=== PATIENT | female | born 1945 ===

== ENCOUNTER 2023-02-19 12:58 | Inpatient (IN) | payer MEDICARE, OTHER ==
[~2023-02-19] VITALS: Ht 149.9 cm; Wt 92.8 kg
[2023-02-19] MEDS ORDERED: ATOR20TA PO (13:07)
[2023-02-19] MEDS ORDERED: CALC-1038 PO (13:07)
[2023-02-19] MEDS ORDERED: AMLO-257 PO (13:07)
[2023-02-19] MEDS ORDERED: CHOL25TA4 PO (13:07)
[2023-02-19] MEDS ORDERED: METO-558 PO (13:07)
[2023-02-19] MEDS ORDERED: METF-1211 PO (13:07)
[2023-02-19] MEDS ORDERED: RIVA20TA PO (13:07)
[2023-02-19] MEDS ORDERED: DORZ1DRO12 OU (13:07)
[2023-02-19] MEDS ORDERED: LOSA-382 PO (13:07)
[2023-02-19] MEDS ORDERED: FURO40TA5 PO (13:26)
[2023-02-19] MEDS ORDERED: DILTIAZEM HCL 5 MG/ML 5 ML VIAL IVP ONE (13:30)
[2023-02-19 13:41] LABS: BASOPHILS % (AUTO) 0.5 % (0.0-2.0); EOSINOPHILS % (AUTO) 1.3 % (1.0-6.0); HEMATOCRIT 35.7 % (36-46); HEMOGLOBIN 11.3 g/dL (12.0-16.0); LYMPHOCYTES # (AUTO) 1.3 K/uL (1.0-4.8); LYMPHOCYTES % (AUTO) 18.1 % (22.0-44.0); MEAN CORPUSCULAR HEMOGLOBIN 25.6 pg (26.0-34.0); MEAN CORPUSCULAR HGB CONC 31.8 G/dL (31.0-37.0); MEAN CORPUSCULAR VOLUME 80 fL (80-100); MONOCYTES # (AUTO) 0.6 K/uL (0.1-1.0); MONOCYTES % (AUTO) 7.9 % (2.0-9.0); NEUTROPHILS # (AUTO) 5.3 K/uL (1.8-7.7); NEUTROPHILS % (AUTO) 72.2 % (40.0-70.0); PLATELET COUNT (AUTO) 390 K/uL (150-450); RED BLOOD CELL COUNT(AUTO) 4.43 MIL/uL (4.00-5.20); RED CELL DISTRIBUTION WIDTH 16.7 % (11.5-14.5)
[2023-02-19 13:53] LABS: INR 1.7 (0.9-1.1); PROTHROMBIN TIME 17.3 SEC (9.4-11.6)
[2023-02-19] MEDS ORDERED: FUROSEMIDE 40 MG/4 ML VIAL IVP ONE (14:00)
[2023-02-19] MEDS ORDERED: NITROGLYCERIN 2% (1 GM=INCH) OINTMENT PACKET TP ONE (14:00)
[2023-02-19] MEDS ORDERED: AMIODARONE HCL 150 MG in DEXTROSE 5%-WATER 97 ML IV ONE (14:30)
[2023-02-19] MEDS ORDERED: AMIODARONE HCL 360 MG in DEXTROSE 5%-WATER 242.8 ML IV ONE (14:30)
[2023-02-19 14:44] LABS: CREATININE 1.27 mg/dL (0.60-1.30)
[2023-02-19 14:50] LABS: ALBUMIN 3.4 g/dL (3.4-5.0); TOTAL PROTEIN, SERUM 7.6 g/dL (6.4-8.2)
[2023-02-19 18:32] LABS: APPEARANCE,URINE CLEAR (CLEAR); BILIRUBIN,URINE NEGATIVE (NEGATIVE); GLUCOSE, URINE (UA) NEGATIVE (NEGATIVE); KETONES,URINE NEGATIVE (NEGATIVE); LEUKOCYTE ESTERASE ,URINE SMALL (NEGATIVE); NITRATE,URINE NEGATIVE (NEGATIVE); OCCULT BLOOD,URINE NEGATIVE (NEGATIVE); PH,URINE 6.5 (5.0-8.0); PROTEIN,URINE NEGATIVE (NEGATIVE); SPECIFIC GRAVITIY, URINE 1.005 (1.003-1.030); UROBILINOGEN,URINE <=1.0 mg/dL (<=1.0)
[2023-02-19 18:44] LABS: BACTERIA,URINE None Seen /HPF (None Seen); RBC,URINE 0-2 /HPF (0-2); SQUAMOUS EPITHELIAL CELL,UR Few /LPF (None Seen); WBC,URINE 0-2 /HPF (0-5)
[2023-02-19] MEDS ORDERED: ONDANSETRON HCL 4 MG/2 ML VIAL IVP PRN (20:00)
[2023-02-19] MEDS ORDERED: ALBUTEROL SULFATE 2.5 MG/0.5 ML NEB SOLUTION NEB PRN (20:00)
[2023-02-19] MEDS: RIVAROXABAN 20 MG TABLET PO SCH (20:00)
[2023-02-19] MEDS ORDERED: ZOLPIDEM TARTRATE 5 MG TABLET PO PRN (20:00)
[2023-02-19] MEDS ORDERED: HYDROCODONE/ACETAMINOPHEN 5-325 MG TABLET PO PRN (20:00)
[2023-02-19] MEDS ORDERED: ACETAMINOPHEN 325 MG TABLET PO PRN (20:00)
[2023-02-19] MEDS ORDERED: MAGNESIUM HYDROXIDE SUSPENSION 30 ML UDCUP PO PRN (20:00)
[2023-02-19] MEDS ORDERED: MORPHINE SULFATE 2 MG/ML SYRINGE IVP PRN (20:00)
[2023-02-19] MEDS ORDERED: IPRATROPIUM BROMIDE 0.5 MG/2.5 ML NEB SOLUTION NEB PRN (20:00)
[2023-02-19] MEDS ORDERED: BISACODYL 10 MG RECTAL RECTAL SUPPOSITORY PR PRN (20:00)
[2023-02-19] MEDS ORDERED: DEXTROSE 50%-WATER 25 GM/50 ML SYRINGE IVP PRN (20:15)
[2023-02-19] MEDS ORDERED: AMIODARONE HCL 540 MG in DEXTROSE 5%-WATER 239.2 ML IV ONE (21:00)
[2023-02-19 21:13] VITALS: BP 135/74; PULSE 133; RESP 21; TEMP 98.6
[2023-02-19] MEDS: CALCIUM [CALCIUM CARB 1250MG] 500 MG TABLET PO SCH (21:31)
[2023-02-19] MEDS: DORZOLAMIDE/TIMOLOL 2-0.5% [22.3-6.8MG/ML] 10 ML OPHTHALMIC SOLUTION OU SCH (21:32)
[2023-02-19] MEDS: ATORVASTATIN CALCIUM 20 MG TABLET PO SCH (21:46)
[2023-02-19] MEDS: FUROSEMIDE 40 MG/4 ML VIAL IVP SCH (21:46)
[2023-02-19 22:06] LABS: GLUCOMETER DEV NAME(LOC) 5S.1B
[2023-02-20] VITALS (7 sets, daily range): BP systolic 106–137; BP diastolic 66–92; PULSE 123–131; RESP 18–20; TEMP 98–98.5
[2023-02-20 06:25] LABS: GLUCOMETER DEV NAME(LOC) 5S.1B
[2023-02-20] MEDS: DORZOLAMIDE/TIMOLOL 2-0.5% [22.3-6.8MG/ML] 10 ML OPHTHALMIC SOLUTION OU SCH ×2 (08:42→20:34)
[2023-02-20] MEDS: FUROSEMIDE 40 MG/4 ML VIAL IVP SCH ×2 (08:42→20:33)
[2023-02-20] MEDS: CHOLECALCIFEROL (VIT D3) 1,000 UNITS [25 MCG] TABLET PO SCH (08:42)
[2023-02-20] MEDS: FAMOTIDINE 20 MG TABLET PO SCH (08:42)
[2023-02-20] MEDS: CALCIUM [CALCIUM CARB 1250MG] 500 MG TABLET PO SCH ×2 (08:52→20:34)
[2023-02-20] MEDS: METOPROLOL SUCCINATE 50 MG ER TABLET PO SCH (16:22)
[2023-02-20] MEDS: AMIODARONE HCL 750 MG in DEXTROSE 5%-WATER 485 ML IV SCH (16:22)
[2023-02-20] MEDS: RIVAROXABAN 20 MG TABLET PO SCH (17:21)
[2023-02-20] MEDS: ATORVASTATIN CALCIUM 20 MG TABLET PO SCH (20:34)
[2023-02-20] MEDS: INSULIN LISPRO 100 UNITS/ML SQ PRN (20:42)
[2023-02-20 21:01] LABS: GLUCOMETER DEV NAME(LOC) 5S.1B
[2023-02-21 01:01] LABS: GLUCOMETER DEV NAME(LOC) 5N.2C
[2023-02-21 01:01] LABS: GLUCOMETER DEV NAME(LOC) 5N.2C
[2023-02-21 04:24] VITALS: BP 114/71; PULSE 131; RESP 20; TEMP 98.4
[2023-02-21] MEDS: INSULIN LISPRO 100 UNITS/ML SQ PRN ×2 (05:58→21:16)
[2023-02-21 06:05] LABS: GLUCOMETER DEV NAME(LOC) 5S.1B
[2023-02-21 07:25] VITALS: BP 114/92; PULSE 124; RESP 18; TEMP 98
[2023-02-21] MEDS: DIGOXIN 250 MCG/ML 2 ML AMP IVP SCH ×3 (09:21→21:11)
[2023-02-21] MEDS: METOPROLOL SUCCINATE 50 MG ER TABLET PO SCH (09:22)
[2023-02-21] MEDS: CHOLECALCIFEROL (VIT D3) 1,000 UNITS [25 MCG] TABLET PO SCH (09:22)
[2023-02-21] MEDS: DORZOLAMIDE/TIMOLOL 2-0.5% [22.3-6.8MG/ML] 10 ML OPHTHALMIC SOLUTION OU SCH ×2 (09:22→20:19)
[2023-02-21] MEDS: CALCIUM [CALCIUM CARB 1250MG] 500 MG TABLET PO SCH ×2 (09:22→20:19)
[2023-02-21] MEDS: FAMOTIDINE 20 MG TABLET PO SCH (09:23)
[2023-02-21] MEDS: FUROSEMIDE 40 MG/4 ML VIAL IVP SCH ×2 (09:23→20:21)
[2023-02-21 12:11] VITALS: BP 124/72; PULSE 100; RESP 16; TEMP 97.9
[2023-02-21 14:16] LABS: BASOPHILS % (AUTO) 0.9 % (0.0-2.0); EOSINOPHILS % (AUTO) 2.1 % (1.0-6.0); HEMATOCRIT 37.3 % (36-46); HEMOGLOBIN 11.8 g/dL (12.0-16.0); LYMPHOCYTES # (AUTO) 1.4 K/uL (1.0-4.8); MEAN CORPUSCULAR HEMOGLOBIN 25.3 pg (26.0-34.0); MEAN CORPUSCULAR HGB CONC 31.6 G/dL (31.0-37.0); MEAN CORPUSCULAR VOLUME 80 fL (80-100); MONOCYTES # (AUTO) 0.7 K/uL (0.1-1.0); MONOCYTES % (AUTO) 8.2 % (2.0-9.0); NEUTROPHILS # (AUTO) 5.8 K/uL (1.8-7.7); NEUTROPHILS % (AUTO) 71.8 % (40.0-70.0); PLATELET COUNT (AUTO) 355 K/uL (150-450); RED BLOOD CELL COUNT(AUTO) 4.65 MIL/uL (4.00-5.20); RED CELL DISTRIBUTION WIDTH 16.1 % (11.5-14.5)
[2023-02-21 14:27] LABS: CALCIUM, TOTAL 9.1 mg/dL (8.8-10.5); CREATININE 1.27 mg/dL (0.60-1.30); POTASSIUM 3.8 mmol/L (3.5-5.1)
[2023-02-21 14:32] LABS: ALBUMIN 3.4 g/dL (3.4-5.0); BILIRUBIN,TOTAL 0.7 mg/dL (0.1-1.0); TOTAL PROTEIN, SERUM 7.8 g/dL (6.4-8.2)
[2023-02-21 15:27] VITALS: BP 98/48; PULSE 115; RESP 16; TEMP 98.4
[2023-02-21] MEDS: AMIODARONE HCL 750 MG in DEXTROSE 5%-WATER 485 ML IV SCH (15:39)
[2023-02-21 16:51] LABS: GLUCOMETER DEV NAME(LOC) 5N.2C
[2023-02-21 17:06] LABS: GLUCOMETER DEV NAME(LOC) 5S.1B
[2023-02-21] MEDS: RIVAROXABAN 20 MG TABLET PO SCH (17:41)
[2023-02-21 19:55] VITALS: BP 107/57; PULSE 103; RESP 20; TEMP 97.9
[2023-02-21] MEDS: ATORVASTATIN CALCIUM 20 MG TABLET PO SCH (20:19)
[2023-02-21 21:36] LABS: GLUCOMETER DEV NAME(LOC) 5N.2C
[2023-02-22 00:10] VITALS: BP 110/60; PULSE 82; RESP 20; TEMP 98.1
[2023-02-22 03:15] VITALS: BP 113/72; PULSE 75; RESP 20; TEMP 97.4
[2023-02-22] MEDS: DIGOXIN 250 MCG/ML 2 ML AMP IVP SCH (03:15)
[2023-02-22 06:36] LABS: GLUCOMETER DEV NAME(LOC) 5N.1C
[2023-02-22 07:47] VITALS: BP 120/71; PULSE 72; RESP 18; TEMP 98.3
[2023-02-22] MEDS: METOPROLOL SUCCINATE 50 MG ER TABLET PO SCH (07:58)
[2023-02-22] MEDS: CALCIUM [CALCIUM CARB 1250MG] 500 MG TABLET PO SCH ×2 (07:58→20:28)
[2023-02-22] MEDS: FAMOTIDINE 20 MG TABLET PO SCH (07:58)
[2023-02-22] MEDS: FUROSEMIDE 40 MG/4 ML VIAL IVP SCH (07:59)
[2023-02-22] MEDS: CHOLECALCIFEROL (VIT D3) 1,000 UNITS [25 MCG] TABLET PO SCH (07:59)
[2023-02-22] MEDS: DORZOLAMIDE/TIMOLOL 2-0.5% [22.3-6.8MG/ML] 10 ML OPHTHALMIC SOLUTION OU SCH ×2 (07:59→20:29)
[2023-02-22 11:07] VITALS: BP 120/74; PULSE 70; RESP 18; TEMP 98
[2023-02-22 15:20] VITALS: BP 118/70; PULSE 71; RESP 18; TEMP 98
[2023-02-22 17:26] LABS: GLUCOMETER DEV NAME(LOC) 5N.1C
[2023-02-22] MEDS: RIVAROXABAN 20 MG TABLET PO SCH (18:23)
[2023-02-22 20:20] VITALS: BP 104/43; PULSE 82; RESP 18; TEMP 99.2
[2023-02-22] MEDS: ATORVASTATIN CALCIUM 20 MG TABLET PO SCH (20:28)
[2023-02-22] MEDS: FUROSEMIDE 40 MG TABLET PO SCH (20:28)
[2023-02-22] MEDS: AMIODARONE HCL 200 MG TABLET PO SCH (20:29)
[2023-02-22] MEDS: INSULIN LISPRO 100 UNITS/ML SQ PRN (20:37)
[2023-02-23 00:28] VITALS: BP 105/66; PULSE 87; RESP 18; TEMP 98
[2023-02-23 04:20] VITALS: BP 119/78; PULSE 88; RESP 18; TEMP 98.1
[2023-02-23 04:51] LABS: GLUCOMETER DEV NAME(LOC) 5N.1C
[2023-02-23 06:36] LABS: GLUCOMETER DEV NAME(LOC) 5S.1B
[2023-02-23 06:36] LABS: GLUCOMETER DEV NAME(LOC) 5N.2C
[2023-02-23 07:25] VITALS: BP 102/70; PULSE 88; RESP 18; TEMP 98
[2023-02-23] MEDS: AMIODARONE HCL 200 MG TABLET PO SCH (08:23)
[2023-02-23] MEDS: FAMOTIDINE 20 MG TABLET PO SCH (08:23)
[2023-02-23] MEDS: FUROSEMIDE 40 MG TABLET PO SCH (08:23)
[2023-02-23] MEDS: METOPROLOL SUCCINATE 50 MG ER TABLET PO SCH (08:23)
[2023-02-23] MEDS: CHOLECALCIFEROL (VIT D3) 1,000 UNITS [25 MCG] TABLET PO SCH (08:23)
[2023-02-23] MEDS: CALCIUM [CALCIUM CARB 1250MG] 500 MG TABLET PO SCH (08:23)
[2023-02-23] MEDS: DORZOLAMIDE/TIMOLOL 2-0.5% [22.3-6.8MG/ML] 10 ML OPHTHALMIC SOLUTION OU SCH (08:27)
[2023-02-23 11:40] VITALS: BP 109/72; PULSE 82; RESP 18; TEMP 98
[2023-02-23 15:00] VITALS: BP 108/68; PULSE 84; RESP 18; TEMP 98
[2023-02-23] MEDS ORDERED: METO-391 PO (16:04)
[2023-02-23] MEDS ORDERED: AMIO200 PO (16:04)
[2023-02-24 02:01] LABS: GLUCOMETER DEV NAME(LOC) 5S.1B
== END 2023-02-23 17:30 | disposition home or self-care (01) | DRG 291 ==
LOC: EMS 12:59 → 5S 18:07
PROVIDERS: ADMIT Hospitalist; ATTEND Hospitalist
DX: I11.0 Hypertensive heart disease with heart failure (principal); I50.23 Acute on chronic systolic (congestive) heart failure; Z68.41 Body mass index [BMI] 40.0-44.9, adult; I48.20 Chronic atrial fibrillation, unspecified; E11.9 Type 2 diabetes mellitus without complications; E78.00 Pure hypercholesterolemia, unspecified; G47.33 Obstructive sleep apnea (adult) (pediatric); E66.9 Obesity, unspecified; H40.9 Unspecified glaucoma; I35.0 Nonrheumatic aortic (valve) stenosis; Z79.01 Long term (current) use of anticoagulants; Z79.84 Long term (current) use of oral hypoglycemic drugs; Z79.899 Other long term (current) drug therapy; Z91.119 Patient's noncompliance with dietary regimen due to unspecified reason
CPT/HCPCS: 71045; 80053; 81001; 81003; 82550; 82962; 83880; 84443; 84484; 85025; 85610; 85730; 93005; 93306; 97116; 97162; 99291; J0282; J1160; J1940; J3490; J7060; 36415-L1; 36415-TC